=== PATIENT | male | born 2005 | race Two or more races ===

== ENCOUNTER 2025-09-21 16:57 | Emergency (ER) | payer BC, SELFPAY ==
[2025-09-21 17:48] VITALS: BP 125/75; PULSE 54; RESP 18; TEMP 36.5; O2SAT 99
--- NOTE | 2025-09-21 17:53 | EDRME_ITS ---
Rapid Medical Screening Exam RME Arrival date/time: 09/21/25 16:57 Chief Complaint: Syncope / Near Syncope Time Seen by Provider: 09/21/25 17:22 Vital signs: Vital Signs Temperature 97.7 F 09/21/25 17:48 Pulse Rate 54 L 09/21/25 17:48 Respiratory Rate 18 09/21/25 17:48 Blood Pressure 125/75 09/21/25 17:48 Pulse Oximetry (%) 99 09/21/25 17:48 Oxygen Delivery Method Room Air 09/21/25 17:48 RME Narrative: Patient cut left finger with a knife then passed out. Brother states patient hit head against the stove, loc approx 3-5 seconds. Syncope in past with blood dra rader. Exam: Well appearing, NAD Clinical Impression: finger laceration, syncope
--- NOTE | 2025-09-21 17:58 | XR_ITS ---
Examination: CT brain head without contrast. 2-D sagittal coronal reconstructions Date and time of exam: September 21, 2025, 1828 hours INDICATIONS: Head injury today syncopal episode CTDI: vol (mGy): 50.1 DLP: (mGycm): 971 6 Technique: Multiple CT axial sections of the brain have been obtained, 5 mm slice thickness. Contrast has not been administered. 2-D sagittal, coronal reconstructions have been obtained Low dose protocols were performed. One or more of the following dose reduction techniques were used; automated exposure control, adjustment of the mA and/or KV according to patient size, use of iterative reconstruction technique. Findings: No significant ventricular enlargement. Intra-axial or extra-axial hemorrhage density is not seen. No mass effect or midline shift Basal cisterns are not remarkable. Fourth ventricle is midline. Cranial vault intact. Chronic left mastoiditis Impression: Negative for acute hemorrhage, mass effect or midline shift
--- NOTE | 2025-09-21 17:58 | EKG_ITS ---
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
--- NOTE | 2025-09-21 18:09 | EDNOTE_ITS ---
ED Syncope RME/HPI General Chief Complaint: Syncope / Near Syncope Stated Complaint: SYNCOPAL EPISODE AFTER SEEING BLOOD; POSS SZ Time Seen by Provider: 09/21/25 17:22 Arrival date/time: 09/21/25 16:57 20-year-old male patient was brought in by family for evaluation regarding syncope. Patient sustained a laceration to the finger, puncture wound, and after seeing blood patient does not remember what happened, and according to the brother patient developed loss of consciousness, hit head on the corner, and was noted to be shaking for few seconds. When the patient woke up patient was not noted to be confused currently patient is not having any symptoms patient also had episode of syncope especially during blood draw. Denies any neck pain. Denies any chest pain abdominal pain or other complaints. Patient is ambulatory RME / HPI RME / HPI narrative: Patient cut left finger with a knife then passed out. Brother states patient hit head against the stove, loc approx 3-5 seconds. Syncope in past with blood draws. Exam: Well appearing, NAD Impression: finger laceration, syncope Related Data Allergies Allergy/AdvReac Type Severity Reaction Status Date / Time No Known Allergies Allergy Verified 09/21/25 17:02 Review of Systems Review of Systems Narrative Review of Systems: Review of system reviewed and within normal limits except mentioned in HPI ED Exam Narrative Physical exam: VITAL SIGNS: Reviewed. GENERAL APPEARANCE: Alert and interactive, follows commands, no acute distress, HEAD AND FACE: Non-traumatic. ENT: PERRL, pink conjunctivitis, eyelid no trauma, Mucous membrane moist. NECK: Supple, nontender, no nuchal rigidity. CHEST: No tenderness, no crepitus, no paradoxical movement, no retractions. LUNGS: Clear, well ventilated, symmetric, no rales, no wheezing, no ronchi, no stridor, good breath sounds bilaterally. HEART: Regular rate, regular rhythm, no murmur, no gallops. ABDOMEN: Soft, positive bowel sounds, nondistended, no guarding, nontender, no rebound, no masses, RECTAL: Deferred. GENITAL: Deferred. NEUROLOGICAL: Gross motor function intact sensory function intact, Appropriate for age. MUSCULOSKELETAL: low back nontender, full range of motion. EXTREMITIES: Nontender, full range of motion. Puncture wound to the left index finger palmar aspect no bleeding SKIN: Color pink, dry, no rash, no lacerations, no abrasions, no contusions. LYMPHATICS: Deferred. Course Quality Measures none Orders Category Date Time Status EKG (ED ONLY) *Do not use* NOW Care 09/21/25 17:[address] head/brain wo con Stat Exams 09/21/25 17:58 Completed EKG (ED Only) Stat Exams 09/21/25 17:58 Draft Alcohol, Blood Medical Stat Lab 09/21/25 18:21 Completed CBC Stat Lab 09/21/25 18:21 Completed CMP [Comprehensive Metabolic Panel] Stat Lab 09/21/25 18:21 Completed Troponin I Stat Lab 09/21/25 18:21 Completed Vital Signs Vital signs: Vital Signs Temperature 97.7 F 09/21/25 17:48 Pulse Rate 54 L 09/21/25 17:48 Respiratory Rate 18 09/21/25 17:48 Blood Pressure 125/75 09/21/25 17:48 Pulse Oximetry (%) 99 09/21/25 17:48 Oxygen Delivery Method Room Air 09/21/25 17:48 Syncope MDM Narrative MDM Narrative:: 20-year-old male patient was brought in by family for evaluation regarding syncope. Patient sustained a laceration to the finger, puncture wound, and after seeing blood patient does not remember what happened, and according to the brother patient developed loss of consciousness, hit head on the corner, and was noted to be shaking for few seconds. When the patient woke up patient was not noted to be confused currently patient is not having any symptoms patient also had episode of syncope especially during blood draw. Denies any neck pain. Denies any chest pain abdominal pain or other complaints. Patient is ambulatory EKG showed sinus bradycardia, ventricular to 56 bpm, no ST segment elevation or depression of the. Patient's laboratory workup was normal including CT scan of the head and abdomen that came back normal. No recurrence of syncope noted in the ED. Patient stable for discharge home Patient data External records reviewed:: None Clinical information provided by:: none Social determinants that could affect healthcare access:: none Patient has the following chronic illnesses:: None How is presenting disease/condition affected by chronic disease/condition?: no chronic disease Evaluation data The following diagnostics were reviewed and interpreted by me:: lab results, radiology exam(s) and EKG tracing(s) Lab and/or radiology exams considered but not ordered:: None Interpretation Summary: Stable Medications / Prescriptions Medications or Prescriptions considered but not ordered:: None Medication administrations:: None Consultations Consultation(s) initiated? (list below): No Diagnosis Syncope Differential Diagnosis: syncope due to orthostatic hypotension, vasovagal syncope and dehydration Most likely diagnosis given after review of the tests above:: Vasovagal syncope Admission Indicated Admission indicated?: not indicated Admission Request Was there a request for admission?: No Disposition Plan Disposition Plan: Discharge Discharge Attestation Discharge Attestation: The patient and all family members were given an opportunity to ask questions and understood the discharge instructions. Discharge instructions specifically effects, indications for sooner follow up or return to the emergency department, and the expected course of current diagnosis. Patient condition: Stable Discharge Plan Plan Patient Disposition: HOME (Self Care) Discharge Disposition comment: Stable Prescriptions/Referrals Referrals: Matt (PCP)Roc MD [Primary Care Provider, Family Practice] - In 1 week Problem List Clinical Impression: Vasovagal syncope Patient/Caregiver Discharge Instructions Discharge Activity: activity as tolerated Education Materials: Understanding Vasovagal Syncope Additional Instructions: Thank you for the opportunity for serving you today. You are stable for discharged . You are advised to: Follow-up with your PCP in 1 to 2 days Return to ED for worsening of symptoms Increase oral fluids Print Language: Slovak Stand Alone Forms: Tonya Award Info., Patient Portal Info Letter JANETH/EARNESTINE Supervising Physician KRISTA Supervising Physician: MIRACLE Garcia
[2025-09-21 18:36] LABS: Basophils # (Auto) 0.1 Thou/mm3 (0.0-0.2); Basophils % (Auto) 1 % (0-2.5); Eosinophils # (Auto) 0.1 Thou/mm3 (0.0-0.5); Eosinophils % (Auto) 1 % (0-10); Hematocrit 46.6 % (41.0-53.0); Hemoglobin 16.2 g/dL (13.5-16.0); Immature Granulocytes Auto 0.02 Thou/mm3 (0.00-0.00); Lymphocytes # (Auto) 1.7 Thou/mm3 (1.0-4.8); Lymphocytes % (Auto) 28 % (10-50); Mean Corpuscular HGB Conc 34.8 g/dl (31.0-37.0); Mean Corpuscular Hemoglobin 29.0 pg (25.0-35.0); Mean Corpuscular Volume 83 fL (80-100); Monocytes # (Auto) 0.5 Thou/mm3 (0.0-0.8); Monocytes % (Auto) 9 % (0-12); Neutrophils # (Auto) 3.7 Thou/mm3 (1.8-7.7); Neutrophils % (Auto) 61 % (37-80); Nucleated Red Blood Cell # 0.00 Thou/mm3 (0.00-0.00); Nucleated Red Blood Cell % 0 /100 WBC (0); Platelet Count 259 Thou/mm3 (140-440); RDW Standard Deviation 35.3 fL (35.1-43.9); Red Blood Count 5.59 Miln/mm3 (4.50-5.90); White Blood Count 6.0 Thou/mm3 (4.5-11.0)
[2025-09-21 18:56] LABS: Alanine Aminotransferase 24 U/L (10-49); Albumin, Serum 4.9 gm/dL (3.5-5.0); Albumin/Globulin Ratio 1.9 (1.2-2.2); Alcohol, Blood Medical < 3.0 mg/dL (0-10.0); Alkaline Phosphatase 75 U/L (46-116); Anion Gap 9 (7-16); Aspartate Amino Transferase 23 U/L (0-34); BUN/Creatinine Ratio 15 Ratio (12-20); Bilirubin,Total 1.8 mg/dL (0.3-1.2); Blood Urea Nitrogen 15 mg/dL (9-23); Calcium 9.6 mg/dL (8.3-10.6); Calcium (Corrected) 9.6 mg/dL (8.5-10.1); Carbon Dioxide 28.4 mMol/L (20.0-31.0); Chloride 105 mMol/L (98-107); Creatinine (Component) 1.0 mg/dL (0.6-1.3); Estimated Creatinine Clearance 105.8 mL/min (>60); Globulin 2.6 gm/dL (2.3-3.5); Glucose 92 mg/dL (74-106); Osmolality,Calculated 283 (275-295); Potassium 3.9 mMol/L (3.4-5.1); Sodium 142 mMol/L (136-145); Total Protein 7.5 gm/dL (5.7-8.2); Troponin I < 0.002 ng/mL (0.0-0.045); eGFR > 60 See Note
[2025-09-21 19:25] VITALS: BP 114/68; PULSE 58; RESP 16; TEMP 36.7; O2SAT 99
== END 2025-09-21 19:34 | disposition home or self-care (01) ==
PROVIDERS: Physician Assistant; Emergency Provider Emergency Medicine; PCP Family Medicine
DX: R55 Syncope and collapse (principal); R00.1 Bradycardia, unspecified; I49.8 Other specified cardiac arrhythmias
CPT/HCPCS: 36415; 70450; 80053; 80307; 80320; 81001; 84484; 85025; 93005; 99283; G0480